=== PATIENT | male | born 1975 | race Caucasian/White ===

== ENCOUNTER 2024-08-18 15:54 | Observation (INO) ==
[2024-08-18] MEDS: SODIUM CHLORIDE 0.9% 1,000 ML IV ONE (16:18)
[2024-08-18] MEDS: ONDANSETRON INJ 2 MG/ML 2 ML VIAL IV STA (16:18)
[2024-08-18] MEDS: MoRPHine SULFATE 4 MG/ML 1 ML CARP\\VIAL IV STA (16:18)
[2024-08-18] MEDS: ceFAZolin 2000MG 2,000 MG/15 ML SYR IV STA (16:21)
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
[2024-08-18 16:27] LABS: Basophils # (auto) 0.03 K/uL (0.00-0.20); Basophils % (auto) 0.4 %; Eosinophils # (auto) 0.33 K/uL (0.00-0.50); Eosinophils % (auto) 3.9 %; Hematocrit (blood only) 44.6 % (42.0-52.0); Hemoglobin 15.1 g/dl (14.0-18.0); Immature Granulocytes # (auto) 0.03 K/uL (0.01-0.20); Immature Granulocytes % (auto) 0.4 %; Lymphocytes # (auto) 1.84 K/uL (1.20-3.40); Lymphocytes % (auto) 21.6 %; Mean Corpuscular Hgb Conc 33.9 g/dL (32.0-36.0); Mean Corpuscular Volume 88.5 fL (80.0-100.0); Mean Platelet Volume 9.5 fL (9.4-12.4); Monocytes # (auto) 0.51 K/uL (0.11-0.59); Neutrophils # (auto) 5.78 K/uL (1.40-6.50); Neutrophils % (auto) 67.7 %; Platelet Count 251 K/uL (130-400); RDW Coefficient of Variation 12.9 % (11.5-14.5); RDW Standard Deviation 41.7 fL (36.4-46.3); Red Blood Count 5.04 M/uL (4.70-6.10); White Blood Count 8.52 K/ul (4.8-10.8)
[2024-08-18 16:35] LABS: iSTAT Creatinine 0.9 mg/dl (0.6-1.3); iSTAT Ionized Calcium 1.13 mmol/l (1.12-1.32); iSTAT Potassium 3.8 mmol/L (3.3-5.0)
[2024-08-18] MEDS: OPTIRAY 320 100ml IV ONE (16:35)
[2024-08-18 16:41] LABS: Partial Thromboplastin Ratio 0.9; Partial Thromboplastin Time 24 Seconds (21-31); Prothrombin Time 10.7 Seconds (9.0-12.0)
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
[2024-08-18 16:52] LABS: Albumin Globulin Ratio 1.6 (0.9-2); Albumin Level 4.5 gm/dl (3.4-5.0); BUN Creatinine Ratio 18.1 (10-20); Bilirubin,Total 0.5 mg/dl (0.2-1.0); Calcium 9.1 mg/dl (8.6-10.3); Creatinine Clr Calc Pharmacy 115.9 ml/min; Globulin 2.9 gm/dl (2.5-4.0); Potassium 3.8 mmol/L (3.5-5.1); Total Protein 7.4 gm/dl (6.0-8.3)
--- NOTE | 2024-08-18 17:03 | CT Scan Report ---
EXAMINATION: Head CT without CLINICAL HISTORY: PRIORS: None TECHNIQUE: Contiguous axial images were obtained through the head without the use of intravenous contrast. Sagittal and coronal reformations are supplied. FINDINGS: Appropriate parenchymal volume is noted. Mir-white differentiation is preserved. No edema or midline shift. Gauze is noted superior to the right ear with small underlying skin defect and soft tissue swelling. No subcutaneous gas or radiopaque foreign body. No intra-axial or extra-axial hemorrhage. Ventricles are normal in size and configuration. Brainstem and cerebellum have a normal appearance. Calvarium unremarkable. Paranasal sinuses and mastoid air cells are well-pneumatized. Globes are intact. No retrobulbar abnormality. IMPRESSION: 1. No CT evidence of an acute intracranial abnormality. 2. Soft tissue swelling/defect superior to the right ear with overlying gauze. No underlying calvarial defect. Electronically signed by Dali Sampson 08-18-2024 5:03 PM
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
[2024-08-18] MEDS: HYDROmorphone INJ 0.5 MG/0.5 ML SYR IV STA ×2 (17:18→18:49)
[2024-08-18] MEDS ORDERED: HYDROmorphone INJ 0.5 MG/0.5 ML SYR IV PRN (18:40)
--- NOTE | 2024-08-18 18:54 | Anesthesiology Consultation ---
Date of Service August 18, 2024 Assessment & Plan Chart Review Chart Review: Acceptable Risk for Surgery and Patient NOT seen in Pre Admission Testing Consults Requested none ASA ASA2E Proposed Anesthesia Anesthesia Type: General History Height/Weight Height: 5 ft 10 in Weight: 99.2 kg Allergies Allergy/AdvReac Type Severity Reaction Status Date / Time No Known Allergies Allergy Unverified 08/18/24 16:17 Medications Home Medications Medication Instructions Recorded Confirmed Last Taken No Known Home Medications 08/18/24 08/18/24 Unknown NPO Date Last Intake of Fluids: 08/18/24 Time Last Intake of Fluids: 11:00 Date Last Intake of Solids: 08/18/24 Time Last Intake of Solids: 11:00 Past Medical History Medical History No significant medical problems + tobacco obese Exercise / Class Metabolic Activity II 4-5 Yardwork/Stairs/Walk up hill Past Anesthesia History No Hx of Anesthesia Complications and No Family Hx of Anesthesia Complications History of PONV No Hx of PONV and No Hx of Motion Sickness Social History Smoking Status: Current every day smoker Physical Exam Vital Signs Last Vital Signs Temp 36.7 C 08/18/24 18:23 Pulse 94 H 08/18/24 18:23 Resp 14 08/18/24 18:23 BP 135/82 08/18/24 18:23 Pulse Ox 99 08/18/24 18:23 O2 Del Method Room Air 08/18/24 18:23 O2 Flow Rate 0 08/18/24 16:23 Testing Laboratory Results 08/18/24 16:18 08/18/24 16:18 PT 10.7 Seconds (9.0-12.0) 08/18/24 16:18 INR 1.0 (0.9-1.1) 08/18/24 16:18 APTT 24 Seconds (21-31) 08/18/24 16:18 08/18/24 16:23 POC Glucose (other) 144 H Chest X-Ray Date: 08/18/24 Findings: + NAD
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
[2024-08-18] MEDS ORDERED: PROPOFOL IV EMULSION 10 MG/ML 20 ML VIAL IV ONE (19:28)
[2024-08-18] MEDS ORDERED: fentaNYL citrate PF 100 MCG/2 ML VIAL ONE ×2 (19:28→20:19)
[2024-08-18] MEDS ORDERED: DEXAMETHASONE SOD INJ 4 MG/ML VIAL ONE (19:32)
[2024-08-18] MEDS ORDERED: ONDANSETRON INJ 2 MG/ML 2 ML VIAL ONE (19:32)
[2024-08-18] MEDS ORDERED: ONDANSETRON INJ 2 MG/ML 2 ML VIAL IV PRN ×2 (19:51→21:35)
[2024-08-18] MEDS ORDERED: ATROPINE SULFATE 0.1 MG/ML 10ML SYR IV PRN (19:51)
[2024-08-18] MEDS ORDERED: HYDROmorphone INJ 2 MG/ML SYR/VIAL IV PRN (19:51)
[2024-08-18] MEDS ORDERED: ePHEDrine sulfate 50 MG/ML AMP IV PRN (19:51)
[2024-08-18] MEDS ORDERED: fentaNYL citrate PF 100 MCG/2 ML VIAL IV PRN (19:51)
[2024-08-18] MEDS ORDERED: GLYCOPYRROLATE 0.2 MG/ML VIAL ONE (20:30)
[2024-08-18] MEDS: BACITRACIN OINT 14 GM TUBE ONE (21:25)
[2024-08-18] MEDS: BUPIVACAINE/EPINEPHRINE 0.5% MPF 1:200,000 30 ML VIAL ONE (21:25)
[2024-08-18] MEDS ORDERED: MoRPHine SULFATE 2 MG/ML CARP IV PRN (21:35)
[2024-08-18] MEDS ORDERED: LORazepam 2 MG/1 ML VIAL IV PRN (21:35)
--- NOTE | 2024-08-18 22:18 | Anesthesiology Progress Note ---
Date of Service August 18, 2024 Anesthesia Post Procedure Vital Signs Vital Signs: Temp Pulse Pulse Resp BP BP Pulse Ox 08/18/24 22:10 92 H 22 150/89 H 97 08/18/24 22:00 78 13 153/79 H 98 08/18/24 21:50 36.3 C L 81 12 146/76 H 100 08/18/24 19:27 78 16 134/87 99 08/18/24 19:00 87 18 134/87 98 08/18/24 19:00 82 17 134/87 98 08/18/24 18:23 36.7 C 94 H 14 135/82 99 08/18/24 17:23 36.9 C 81 18 136/84 99 08/18/24 17:06 100 H 24 99 08/18/24 17:02 131/109 H 08/18/24 17:00 94 H 08/18/24 16:23 08/18/24 16:23 08/18/24 16:23 36.7 C 102 H 18 125/77 94 08/18/24 15:57 36.8 C 125 H 18 115/72 93 O2 Del Method O2 Flow Rate 08/18/24 22:10 Room Air 08/18/24 22:00 Oxymask 4 08/18/24 21:50 Oxymask 6 08/18/24 19:27 Room Air 08/18/24 19:00 Room Air 08/18/24 19:00 Room Air 08/18/24 18:23 Room Air 08/18/24 17:23 Room Air 08/18/24 17:06 Room Air 08/18/24 17:02 08/18/24 17:00 08/18/24 16:23 Room Air 08/18/24 16:23 Room Air 08/18/24 16:23 Room Air 0 08/18/24 15:57 Room Air Pain Intensity Right Ear: Pain Intensity: 10 Transfer of Care Handoff Completed per policy Notes Mental Status: alert / awake / arousable Patient Amnestic to Procedure: Yes Nausea / Vomiting: adequately controlled Pain: adequately controlled Airway Patency, RR, SpO2: stable & adequate BP & HR: stable & adequate Hydration State: stable & adequate Anesthetic Complications: no major complications apparent
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
[2024-08-18] MEDS ORDERED: DOCUSATE SODIUM 100 MG CAP PO PRN (22:43)
[2024-08-18] MEDS: KETOROLAC 30 MG/ML VIAL IV SCH (23:30)
[2024-08-18] MEDS: oxyCODONE HCL IR 5 MG TAB (IMMEDIATE RELEASE) PO PRN (23:30)
[2024-08-18] MEDS: ceFAZolin 2000MG 2,000 MG/15 ML SYR IV SCH (23:31)
[2024-08-18] MEDS: dexAMETHasone 6 MG in SYRINGE 0 ML IV SCH (23:31)
[2024-08-19 02:21] LABS: Appearance Urine Clear (Clear); Bilirubin Urine Negative (Negative); Blood Urine Negative (Negative); Color Urine Yellow; Glucose Urine UA Negative (Negative); Ketones Urine Negative (Negative); Leukocyte Esterase Urine Negative (Negative); Nitrite Urine Negative (Negative); Protein Urine Negative (Negative); Specific Gravity Urine 1.022 (1.000-1.030); Urobilinogen Urine Negative (Negative); pH Urine 6.5 (4.5-7.5)
[2024-08-19 06:29] LABS: Hematocrit (blood only) 40.1 % (42.0-52.0); Hemoglobin 13.9 g/dl (14.0-18.0); Mean Corpuscular Hemoglobin 30.6 pg (25.0-34.0); Mean Corpuscular Hgb Conc 34.7 g/dL (32.0-36.0); Mean Corpuscular Volume 88.3 fL (80.0-100.0); Mean Platelet Volume 9.6 fL (9.4-12.4); Platelet Count 207 K/uL (130-400); RDW Coefficient of Variation 12.8 % (11.5-14.5); RDW Standard Deviation 41.6 fL (36.4-46.3); Red Blood Count 4.54 M/uL (4.70-6.10)
[2024-08-19 07:24] LABS: BUN Creatinine Ratio 16.7 (10-20); Calcium 8.4 mg/dl (8.6-10.3); Creatinine Clr Calc Pharmacy 139.7 ml/min; Potassium 4.1 mmol/L (3.5-5.1)
[2024-08-19 07:33] LABS: Immature Granulocytes # (auto) 0.03 K/uL (0.01-0.20); Immature Granulocytes % (auto) 0.3 %; Lymphocytes # (auto) 0.58 K/uL (1.20-3.40); Lymphocytes % (auto) 5.9 %; Monocytes # (auto) 0.06 K/uL (0.11-0.59); Monocytes % (auto) 0.6 %; Neutrophils # (auto) 9.13 K/uL (1.40-6.50); Neutrophils % (auto) 93.2 %
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
[2024-08-19 11:11] VITALS: RESP 16; TEMP 98.2; O2SAT 95
--- NOTE | 2024-08-19 11:13 | Oral/Maxillofacial Progress Nt ---
Date of Service August 19, 2024 Assessment & Plan Admission and Anticipated Discharge Date Admission Date: August 18, 2024 Subjective Post OP note for facial lacerations at 18 hours The repaired scalp/ear laceration looks great. The tissue is soft, no hematoma noted and the sutures are in place The Pinna that was a vascular flap is well positioned and has a good blood supply and pink in color The wound edges are very flat without hypertrophy. Over all the result is excellent and the patient I redressed the wound with a pressure dressing. Call [facility] BARGE WORKER will keep on Augmentin x 14, appropriate pain, in [facility] RTC office on August 22 for follow up with Dr Jonelle RODRIGUEZ for Discharge back to [facility] as needed . Results & Data Vital Signs (Past 12 Hours) Vital Signs Temp Pulse Pulse Resp BP Pulse Ox Pulse Ox 08/19/24 07:53 36.9 C 70 18 114/67 93 08/19/24 06:20 94 08/19/24 06:00 96 08/19/24 05:00 96 08/19/24 04:00 95 08/19/24 03:00 96 08/19/24 02:05 36.6 C 60 16 118/73 95 08/19/24 02:05 96 08/19/24 00:55 36.6 C 68 16 112/75 95 08/19/24 00:11 36.9 C 60 18 125/74 94 08/19/24 00:00 96 08/18/24 23:30 08/18/24 23:30 36.5 C 65 18 146/86 H 97 O2 Del Method O2 Del Method 08/19/24 07:53 Room Air 08/19/24 06:20 Room Air 08/19/24 06:00 Room Air 08/19/24 05:00 Room Air 08/19/24 04:00 Room Air 08/19/24 03:00 Room Air 08/19/24 02:05 Room Air 08/19/24 02:05 Room Air 08/19/24 00:55 Room Air 08/19/24 00:11 Room Air 08/19/24 00:00 Room Air 08/18/24 23:30 Room Air 08/18/24 23:30 Room Air PG Care Time/CCT Total # of Minutes Spent Total Time Spent with Patient: Total time spent is greater than 50% in coordination of care (as documented) at patient's floor/unit and/or counseling patient: Coding Level of Care Code None
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
[2024-08-19 12:26] VITALS: BP 114/67; PULSE 60
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
== END 2024-08-19 12:34 ==
LOC: 3E 15:54 → ED 15:54